=== PATIENT | male | born 1960 | race Caucasian/White ===

== ENCOUNTER 2020-08-12 18:56 | Emergency (ER) | payer OTHER ==
[~2020-08-12] VITALS: Ht 185.4 cm; Wt 118.6 kg
--- NOTE | 2020-08-12 19:18 | ED Upper Extremity ---
General Chief Complaint: Laceration Stated Complaint: LT THUMB LAC Source: patient Exam Limitations: no limitations History of Present Illness Date Seen by Provider: Aug 12, 2020 Time Seen by Provider: 19:00 Initial Comments 60-year-old male presents with left thumb injury just prior to arrival. Patient was using his crossbow and the string cut his left thumb. Presents to the ER in near hysteria. No other injury or complaint Allergies and Home Medications Allergies Coded Allergies: No Known Drug Allergies (Unverified , 08/12/20) Home Medications Cephalexin 500 Mg Tablet, 500 MG PO TID Prescribed by: DUANE BILLINGS on 08/12/201924 Hydrocodone/Acetaminophen 1 Each Tablet, 1 EACH PO Q4H Prescribed by: DUANE BILLINGS on 08/12/201925 Patient Home Medication List Home Medication List Reviewed: Yes Review of Systems Constitutional: No fever, No malaise, No weakness EENTM: no symptoms reported Respiratory: no symptoms reported Cardiovascular: no symptoms reported Musculoskeletal: see HPI, other (left thumb injury) Skin: see HPI, other (large skin avulsion - thumb) Past Qricqez-Nqeohz-Sflztk Hx Past Med/Social Hx: Reviewed Nursing Past Med/Soc Hx Patient Social History Alcohol Use: Denies Use Recreational Drug Use: No Recent Foreign Travel: No Contact w/Someone Who Travel: No Physical Exam Vital Signs Vital Signs - First Documented 08/12/20 19:07 Temp 37.0 Pulse 89 Resp 16 B/P (MAP) 164/80 (108) Pulse Ox 97 O2 Delivery Room Air Capillary Refill : Height, Weight, BMI Height: '" Weight: lbs. oz. kg; BMI Method: General Appearance: WD/WN, no apparent distress, other (anxious) Wrist: Yes normal inspection, Yes non-tender, Yes no evidence of injury, Yes normal ROM Hand: Left (thumb large skin avulsion medial aspect (2cm x 4cm). Functional ROM. No active bleeding. distal tip of thumb and nailbed intact. Remainder of hand unaffected) Neurologic/Psychiatric: alert, normal mood/affect Progress/Results/Core Measures Results/Orders My Orders Orders - DUANE BILLINGS DO Cephalexin Capsule (Keflex Capsule) (08/12/20 19:30) Hydrocodone/Apap 10/325 Tablet (Lortab 1 (08/12/20 19:30) Dipht,Pertuss(Acell),Tet Adult (Boostrix (08/12/20 19:45) Medications Given in ED Current Medications Medications Dose Ordered Sig/Lukas Route Start Time Stop Time Status Last Admin Dose Admin Acetaminophen/ Hydrocodone Bitart 1 ea ONCE ONCE PO 08/12/20 19:30 08/12/20 19:34 DC 08/12/20 19:43 1 EA Cephalexin HCl 500 mg ONCE ONCE PO 08/12/20 19:30 08/12/20 19:34 DC 08/12/20 19:42 500 MG Diphtheria/ Tetanus/Acell Pertussis 0.5 ml ONCE ONCE IM 08/12/20 19:45 08/12/20 19:46 DC 08/12/20 19:53 0.5 ML Vital Signs/I&O 08/12/20 08/12/20 19:07 19:56 Temp 37.0 37.0 Pulse 89 89 Resp 16 16 B/P (MAP) 164/80 (108) 164/80 (108) Pulse Ox 97 97 O2 Delivery Room Air Departure Communication (Admissions) Time/Spoke to Consulting Phy: 19:[address] Galan ( customer retention representative) to discuss injury and findings. Recommends wet to dry dressing changes, abx and pain med. He will see pt in office middle of next week to decide on wether or not he will need a skin graft, but at this point he doubts that it will be necessary. Discussed abx and pain meds w pt and Explained "wet to dry" dressing changes to pt and discussed keeping wound clean. Impression Primary Impression: Avulsion of skin of left thumb Qualified Codes: S61.002A - Unspecified open wound of left thumb without damage to nail, initial encounter Disposition: HOME, SELF-CARE Condition: Improved Departure-Patient Inst. Decision time for Depature: 19:23 Referrals: AMY GALAN MD Patient Instructions: How to Change a Wet to Dry Dressing, SKIN AVULSION Add. Discharge Instructions: Call Dr Galan tomorrow to schedule a follow up appointment next week. All discharge instructions reviewed with patient and/or family. Voiced understanding. Scripts Hydrocodone/Acetaminophen (Hydrocodone-Acetamin 5-325 mg) 1 Each Tablet 1 EACH PO Q4H for Abdominal Pain, #20 TAB Prov: MILTONVENSTDUANE SARAVIA DO 08/12/20 Cephalexin (Cephalexin) 500 Mg Tablet 500 MG PO TID, #21 TAB 0 Refills Prov: DUANE BILLINGS DO 08/12/20 DUANE BILLINGS DO Aug 12, 2020 19:18
[2020-08-12] MEDS ORDERED: CEPH500T PO (19:25)
[2020-08-12] MEDS ORDERED: ACHD5005 PO (19:25)
[2020-08-12] MEDS ORDERED: CEPHALEXIN 250 MG (KEFLEX) CAP PO ONE (19:30)
[2020-08-12] MEDS ORDERED: HYDROcodone/APAP 10 MG/325 MG (LORTAB) TAB PO ONE (19:30)
[2020-08-12] MEDS ORDERED: TETANUS,DIPTH,PERTUSS P/F (BOOSTRIX) 0.5 ML VIAL IM ONE (19:45)
[2020-08-12 19:56] VITALS: BP 164/80
== END 2020-08-12 19:57 | disposition home or self-care (01) ==
LOC: ER FS 18:57
DX: S61.102A Unspecified open wound of left thumb with damage to nail, initial encounter (principal); F41.9 Anxiety disorder, unspecified; Z23 Encounter for immunization; W26.8XXA Contact with other sharp object(s), not elsewhere classified, initial encounter
CPT/HCPCS: 90715